=== PATIENT | female | born 2000 | race African-American/Black ===

== ENCOUNTER 2021-04-03 13:36 | Emergency (ER) | payer OTHER ==
[~2021-04-03] VITALS: Ht 162.6 cm; Wt 90.7 kg
--- NOTE | ~2021-04-03 | EMS ---
[place] [address] EMS Patient Care Report Name: JENNIFER VERMA Room #: PRE M.R.#: [id number] Admission: Attend Phys: Discharge: Date of : [birth year] Report #: [id number] THIS REPORT FOR: //name// Report Transmitted: 04/03/2021 13:10 EMS Care Summary [place], [place] Incident [id number] @ 04/03/2021 12:58 Incident Location [address] [place] [address] [address] [place] [address] Patient JENNIFER VERMA Female, 20 Years 2000 Patient Address [address] [place] [address] Patient History None Reported, Patient Allergies No known allergies, Patient Medications None Reported, Chief Complaint SYNCOPAL EPISODE ON TOILET Disposition Transported No Lights/[place] Dispatch Reason Unconscious/Fainting Transported To [facility] Narrative UPON ARRIVAL PT LYING IN BED CONSCIOUS AND ALERT. PT HAS BEEN HAVING N/V/D SINCE WAKING UP TODAY. PT ALSO FEELSING WEAK AND DIZZY. [place] [address] EMS Patient Care Report Name: JENNIFER VERMA Room #: [facility] [place].#: [id number] Admission: Attend Phys: Discharge: Date of : [birth year] Report #: [id number] ON THE TOILET WHEN SHE PASSED OUT. THAT IS WHEN FAMILY CALLED. PT ASSISTED DOWN STAIRS TO COT AND LOADED. PT TRANSPORTED TO [facility]. Initial Vitals @13:25P: 73,CO: 3,SpO2: 99, @13:30P: 91,R: 20,BP: 110/62,Pain: 2/10,GCS: 15,CO: 7,SpO2: 99,Revised Trauma: 12, @13:14P: 81,R: 20,BP: 127/86,Pain: 2/10,GCS: 15,Glucose: 129,SpO2: 97,Revised Trauma: 12, Assessments @13:10MENTAL:Event Oriented,Time Oriented,Person Oriented,Place Oriented,SKIN:Diaphoresis,HEENT:Head/Face: No Abnormalities,LUNG SOUNDS:General: Nausea,General: Vomiting,General: Diarrhea,ABDOMEN:General: Nausea,General: Vomiting,General: Diarrhea,PELVIS//GI:EXTREMITIES:Left Arm: No Abnormalities,Right Arm: No Abnormalities,Left Leg: No Abnormalities,Right Leg: No Abnormalities,PULSE:Radial: 2+ Normal,NEURO:No Abnormalities, Impression Vomiting Procedures @13:10 ALS Assessment Response: UnchangedSucceeded @13:20 Zofran - 4 Milligrams (mg) - Oral Response: Improved Timeline 12:56,Call Received 12:56,Dispatch Notified 12:58,Dispatched 13:00,En Route 13:07,On Scene 13:09,At Patient 13:10,ALS Assessment,Response: UnchangedSucceeded, 13:14,BP: 127/86 M,PULSE: 81,RR: 20 R,SPO2: 97 Ox,ETCO2: ,B,PAIN: 2,GCS: 15, 13:17,Depart Scene 13:20,Zofran - 4 Milligrams (mg) - Oral,Response: Improved 13:25,BP: / M,PULSE: 73,RR: R,SPO2: 99 Ox,ETCO2: ,BG: ,PAIN: ,GCS: , 13:29,At Destination 13:30,BP: 110/62 M,PULSE: 91,RR: 20 R,SPO2: 99 Ox,ETCO2: ,BG: ,PAIN: 2,GCS: 15, 13:45,Call Closed Disclaimer v1.1 Copyright 2020 [employer] This EMS Care Summary contains data elements from the applicable legal record [address] [address] EMS Patient Care Report Name: BAYRON,AERION Room #: [facility] M.R.#: [id number] Admission: Attend Phys: Discharge: Date of : [birth year] Report #: [id number] (which may be displayed differently). It is designed to provide pertinent information for the following purposes: continuity of care, clinical quality, and state data reporting. The complete legal record is available to ED staff and administrators of the receiving hospital in [employer] Patient Tracker. All data is provided "as is."
[~2021-04-03 13:36] MED LIST: BIRTH CONTROL SHOT INJECTION
[2021-04-03 14:03] LABS: HEMATOCRIT 40.2 % (37.0-47.0); MCHC 32.5 g/dL (28.0-37.0); MCV 92.4 fL (80.0-100.0); RBC 4.35 mil/uL (4.20-5.00); RDW 14.4 % (10.5-14.5); WBC 9.7 thou/uL (4.0-11.0)
[2021-04-03 14:16] LABS: CALCIUM 8.6 mg/dL (8.5-10.1); CREATININE 0.8 mg/dL (0.6-1.0); POTASSIUM 3.9 mmol/L (3.5-5.1)
[2021-04-03 14:22] LABS: ALBUMIN 3.9 g/dL (3.4-5.0); TOTAL BILIRUBIN 0.5 mg/dL (0.2-1.0); TOTAL PROTEIN 8.2 g/dL (6.4-8.2)
[2021-04-03 16:10] LABS: URINE BILIRUBIN NEGATIVE (Negative); URINE BLOOD 1+ (Negative); URINE CLARITY CLEAR; URINE COLOR YELLOW; URINE GLUCOSE-RANDOM* NEGATIVE (Negative); URINE KETONES NEGATIVE (Negative); URINE LEUKOCYTES-REFLEX NEGATIVE (Negative); URINE NITRITE-REFLEX NEGATIVE (Negative); URINE PROTEIN (DIPSTICK) NEGATIVE (Negative); URINE SPECIFIC GRAVITY 1.025 (1.005-1.035); URINE UROBILINOGEN 0.2 E.U./dl (0.2-1.0)
[2021-04-03 16:38] LABS: SQUAMOUS >10 Many /LPF (0-3)
[2021-04-03 16:40] LABS: CASTS None Seen /LPF (None Seen); CRYSTALS None Seen /LPF (None Seen); URINE WBC-REFLEX 0-5 Rare /HPF (0-5); YEAST-REFLEX Present (None Seen)
[2021-04-03] MEDS ORDERED: DIFLUCAN150 M1 PO (17:13)
[2021-04-03] MEDS ORDERED: ZOFRAN ODT4 MG PO (17:13)
[2021-04-03 17:28] VITALS: BP 128/62
--- NOTE | 2021-04-04 08:03 | EKG ---
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
== END 2021-04-03 17:28 | disposition admitted as inpatient to this hospital (09) ==
LOC: ER 13:36
PROVIDERS: Nurse Practitioner Family
DX: R55 Syncope and collapse (principal); Z20.822 Contact with and (suspected) exposure to COVID-19; R19.7 Diarrhea, unspecified; R11.2 Nausea with vomiting, unspecified; Z79.899 Other long term (current) drug therapy